=== PATIENT | male | born 1970 | race Caucasian/White ===

== ENCOUNTER 2017-01-19 14:15 | Emergency (ER) | payer MEDICAID ==
[~2017-01-19] VITALS: Ht 172.7 cm; Wt 80.0 kg
[2017-01-19] MEDS ORDERED: MORPHINE SULFATE 4 MG/ML, 1ML IVPush PRN (14:30)
[2017-01-19] MEDS ORDERED: SODIUM CHLORIDE FLUSH 10ML SYR IVF ONE (14:30)
[2017-01-19 14:49] LABS: HEMATOCRIT 40.6 % (39.2-51.8); HEMOGLOBIN 13.6 g/dL (13.7-18.0)
[2017-01-19 15:00] LABS: ASPARTATE AMINO TRANSFERASE 15 U/L (15-37); BLOOD UREA NITROGEN 7 mg/dL (7-18)
[2017-01-19 15:06] LABS: IS PT STATUS REG ER OR PRE ER? YES
[2017-01-19] MEDS ORDERED: morphine SULFATE 10 MG/ML, 1ML ONE (15:10)
[2017-01-19] MEDS ORDERED: CARV-39 PO (15:18)
[2017-01-19] MEDS ORDERED: DIGO125T PO (15:19)
[2017-01-19] MEDS ORDERED: ATOR-2 PO (15:19)
[2017-01-19] MEDS ORDERED: SPIR25TA3 PO (15:20)
[2017-01-19] MEDS ORDERED: LISI-167 PO (15:20)
[2017-01-19] MEDS ORDERED: ASPI-496 PO (15:21)
[2017-01-19 17:36] LABS: IS PT STATUS REG ER OR PRE ER? YES
[2017-01-19 17:54] VITALS: BP 153/81
== END 2017-01-19 17:57 | disposition home or self-care (01) ==
LOC: ED 16:35
DX: R07.89 Other chest pain (principal); R00.1 Bradycardia, unspecified; I10 Essential (primary) hypertension; E78.5 Hyperlipidemia, unspecified; G89.29 Other chronic pain
CPT/HCPCS: 36415; 71010; 80053; 83880; 84484; 85025; 85610; 85730; 93005; 96374

== ENCOUNTER → 2017-03-08 | Outpatient (CLI) | payer MEDICAID ==
[~2017-03-08] MED LIST: ASPI-496 PO; ATOR-2 PO; CARV-39 PO; DIGO125T PO; LISI-167 PO; SPIR25TA3 PO
== END ==
LOC: CVU 07:12
PROVIDERS: ATTEND Internal Medicine Cardiovascular Disease
DX: I34.0 Nonrheumatic mitral (valve) insufficiency (principal); I42.9 Cardiomyopathy, unspecified
CPT/HCPCS: 93306

== ENCOUNTER 2018-06-16 11:48 | Emergency (ER) | payer BC, MEDICAID, OTHER ==
[~2018-06-16] VITALS: Ht 172.7 cm; Wt 85.0 kg
[~2018-06-16 11:48] MED LIST changes: -SPIR25TA3 PO; +SPIR25TA5 PO
--- NOTE | 2018-06-16 11:48 | NUR ---
JUAN ANTONIO from [place] PCP c/o SOB/incr WOB since 0200 last night, non-prod cough, "stabbing" substernal CP; hx/o CHF, HTN; PIV, BG 121, 325mg [employer] per EMS; pt ambulated steadily to [facility], changed into gown, responds approp to staff, NAD but states he feels better with suppl O2, comfort measures provided, call light within reach; cardiac, NIBP & SpO2 monitors in place.
[2018-06-16 12:40] LABS: BASOPHILS # (AUTO) 0.08 x10^3/uL (0-0.1); BASOPHILS % (AUTO) 1 % (0-1); EOSINOPHILS # (AUTO) 0.12 x10^3/uL (0-0.4); EOSINOPHILS % (AUTO) 1 % (1-7); INTERNATIONAL NORMALIZED RATIO 1.17 (0.93-1.1); LYMPHOCYTES # (AUTO) 3.32 x10^3/uL (1-3.4); LYMPHOCYTES % (AUTO) 27 % (22-44); MD NO; MEAN CORPUSCULAR HEMOGLOBIN 29.7 pg (27.5-34.5); MEAN CORPUSCULAR HGB CONC 33.9 g/dL (33.2-36.2); MEAN CORPUSCULAR VOLUME 87.5 fL (81-97); MEAN PLATELET VOLUME 8.1 fL (7.4-10.4); MONOCYTES # (AUTO) 0.87 x10^3/uL (0.2-0.8); MONOCYTES % (AUTO) 7 % (2-9); NEUTROPHILS # (AUTO) 8.09 x10^3/uL (1.8-6.8); NEUTROPHILS % (AUTO) 65 % (42-75); PLATELET COUNT 458 x10^3/uL (130-400); PROTHROMBIN TIME 12.2 Seconds (9.6-11.5); RED BLOOD COUNT 4.77 x10^6/uL (4.38-5.82); RED CELL DISTRIBUTION WIDTH 14.2 % (9.4-14.8)
[2018-06-16] MEDS ORDERED: NITROGLYCERIN SINGLE TAB 0.4 MG SL ONE (12:41)
[2018-06-16 12:43] LABS: ALBUMIN 3.4 g/dL (3.4-5.0); ANION GAP 8 mmol/L (5-15); CALCIUM 8.8 mg/dL (8.5-10.1); CHLORIDE 109 mmol/L (98-107)
[2018-06-16] MEDS: NITROGLYCERIN SINGLE TAB 0.4 MG SL PRN ×2 (12:43→12:54)
[2018-06-16 12:48] LABS: ALANINE AMINOTRANSFERASE 36 U/L (12-78); BILIRUBIN,TOTAL 0.7 mg/dL (0.2-1.0); CREATININE 1.13 mg/dL (0.7-1.3); TOTAL PROTEIN 6.7 g/dL (6.4-8.2); TROPONIN I 0.082 ng/mL (0.000-0.045)
[2018-06-16 12:50] LABS: ALKALINE PHOSPHATASE 69 U/L (45-117)
[2018-06-16] MEDS ORDERED: FURO20TA3 PO (12:50)
[2018-06-16] MEDS ORDERED: ESOM20CA PO (12:50)
--- NOTE | 2018-06-16 12:53 | NUR ---
pt upright on gurney awake & calm, responds approp to staff, NAD, comfort measures provided, call light within reach.
--- NOTE | 2018-06-16 14:04 | NUR ---
pt remains upright on gurney awake & comfortable, watching TV, responds approp to staff, NAD, comfort measures provided, arrived at BS, call light within reach.
--- NOTE | 2018-06-16 15:05 | NUR ---
pt upright on gurney awake & comfortable, watching TV, responds approp to staff, NAD, comfort measures provided, call light within reach.
--- NOTE | 2018-06-16 15:30 | NUR ---
Report given to Anne Rodriguez (Hodan BARAMS), awaiting transport by [facility].
[2018-06-16 16:00] VITALS: BP 128/107
--- NOTE | 2018-06-16 16:00 | NUR ---
pt remains upright on [facility] awake & comfortable, watching TV, responds approp to staff, NAD, comfort measures provided, returned to , call light within reach. awaiting [address] [facility] via [facility].
--- NOTE | 2018-06-16 16:29 | NUR ---
pt left via [facility]
== END 2018-06-16 16:31 | disposition short-term general hospital (02) ==
LOC: ED 13:01
DX: R07.89 Other chest pain (principal); I50.9 Heart failure, unspecified; I11.0 Hypertensive heart disease with heart failure; E78.5 Hyperlipidemia, unspecified; R79.9 Abnormal finding of blood chemistry, unspecified
CPT/HCPCS: 36415; 71045; 80053; 83690; 83880; 84484; 85025; 85379; 85610; 85730; 93005; 99285